=== PATIENT | female | born 1950 | race Caucasian/White ===

== ENCOUNTER 2017-01-13 17:29 | Emergency (ER) | payer SELFPAY ==
[~2017-01-13 17:29] MED LIST: GLUCOPHAGE500 MG PO; GLUCOTROL5 MG PO; PHENERGAN 12.12.5 M1 PO; TRAMADOL HCL50 MG PO
== END 2017-01-13 19:23 | disposition home or self-care (01) ==
LOC: ER1 17:29
DX: N39.0 Urinary tract infection, site not specified (principal); Z90.49 Acquired absence of other specified parts of digestive tract
CPT/HCPCS: 36415; 81001; 99283